=== PATIENT | female | born 1990 | race Caucasian/White ===

== ENCOUNTER 2016-08-18 19:34 | Emergency (ER) | payer OTHER ==
--- NOTE | 2016-08-18 21:36 | ED NURSING NOTES ---
Clinical Report - Nurses [facility] [address] [place] [address] 08/18/2016 19:36 Patient: ANAHY BASURTO TRIAGE Triage time 19:55 Aug 18 2016. Acuity: LEVEL 3. Chief Complaint: FEVER, COUGH and SORE THROAT. Alert. ROMAN COMA SCORE: Roman Coma Scale: 15- eyes open spontaneously (4); best verbal response- oriented x 4 (5); best motor response- obeys commands (6). --20:06 Oumar Mac R.N. 19:56 08/18/16. BP: 109/56. HR: 131 (regular). RR: 16. O2 saturation: 100% on room air. Temp: 103.1 F. Pain level now: 11/29. --20:06 Oumar Mac R.N. Weight: 77.1 kg. Height/Length: 66 inches Per Patient. BMI: 27.4. --20:06 Oumar Mac R.N. Medications Ranitidine HCl Oral 150 mg, daily. --19:59 Oumar Mac R.N. Medication/allergy information source: the patient. --20:06 Oumar Mac R.N. Allergies Iodinated Diagnostic Agents. --20:00 Oumar Mac R.N. History ( Fever associated with cough, congestion, N/V, and new today mid-to-low back pain.). Onset. (5 days ago). She has had chest congestion, chills, fatigue and vomiting. 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 (Theraflu, Nyquil, Mucinex). PAST MEDICAL HX: Negative. SOCIAL HX: Never smoker. No alcohol use or drug use. Recent travel- [place] (about 7 days ago). No infectious disease exposure. ABUSE ASSESSMENT: No report of abuse. FALL RISK ASSESSMENT: Fall risk assessment completed. No fall risk identified. NUTRITIONAL RISK ASSESSMENT: The nutritional risk assessment revealed no deficiencies. FUNCTIONAL ASSESSMENT: Functional assessment: no impairments noted. LEARNING NEEDS ASSESSMENT: The learning needs assessment revealed no barriers. SKIN INTEGRITY ASSESSMENT: Skin integrity risk assessment completed. No skin integrity risk identified. --20:06 Oumar Mac R.N. PROBLEMS: Tuberculosis. --20:02 Oumar Mac R.N. ADDITIONAL SURGERIES: Lap Banding. --20:02 Oumar Mac R.N. Interventions ID and allergy band on patient. To treatment room. --20:06 Oumar Mac R.N. PHYSICAL ASSESSMENT Ambulatory to room. GENERAL / NEURO / PSYCH: Alert. Oriented X 4. HEENT: Mucous membranes are pink. RESPIRATORY: Respirations not labored. CVS: Cardiac rhythm: sinus tachycardia. GI / : Abdomen soft. SKIN: Skin intact. Skin is dry. Hot skin. Normal skin turgor. --20:07 Oumar Mac R.N. NURSING PROGRESS NOTES Pulse oximeter applied. Patient gowned. Reassurance given to the patient. Patient identifiers checked. Call light placed in reach. Side rails up x 1. Bed placed in lowest position. Brakes of bed on. Patient ready for evaluation- ELECTROPLATER notified. --20:07 Oumar Mac R.N. 20:04 08/18/2016 Acetaminophen (APAP) PO Tablets 1000 mg given. Allergies verified and confirmed 5 rights. --20:24 Oumar Mac R.N. 20:25. Patient ID band checked for patient name, birthdate and medical record number: patient confirmed. Instructions provided to collect clean catch urine and patient verbalized understanding. Clean catch urine collected with return of yellow-colored clear urine; odor is normal; sample sent to lab for urinalysis. Specimen labeled in the presence of the patient. --20:47 Oumar Mac R.N. 20:50 08/18/16. BP: 105/65. HR: 121. RR: 16. O2 saturation: 97% on room air. --20:51 Oumar Mac R.N. DISPOSITION / DISCHARGE Departure time: 21:53 Aug 18 2016. Condition at departure: improved. No learning barriers present. Discharge instructions provided and reviewed with the patient. Reviewed warnings. Reviewed medication(s). Treatments reviewed. Reviewed referrals. Patient verbalized understanding. Written instructions provided in Austrian. The patient was discharged home. She left the Emergency Department ambulatory and via private vehicle. Patient driving. --21:53 Kristina Abernathy R.N. 21:52 08/18/16. BP: 94/43. HR: 113. RR: 20. O2 saturation: 98%. Temp: 98.6 F. Pain level now 08/01. --21:53 Kristina Abernathy R.N. Locked/Released at 08/19/2016 8:51 by Aurora Murray R.N.
--- NOTE | 2016-08-18 21:36 | ED NURSING NOTES ---
Clinical Report - Nurses [facility] [address] [place] [address] 08/18/2016 19:36 Patient: ANAHY BASURTO TRIAGE Triage time 19:55 Aug 18 2016. Acuity: LEVEL 3. Chief Complaint: FEVER, COUGH and SORE THROAT. Alert. ROMAN COMA SCORE: Roman Coma Scale: 15- eyes open spontaneously (4); best verbal response- oriented x 4 (5); best motor response- obeys commands (6). --20:06 Oumar Mac R.N. 19:56 08/18/16. BP: 109/56. HR: 131 (regular). RR: 16. O2 saturation: 100% on room air. Temp: 103.1 F. Pain level now: 11/29. --20:06 Oumar Mac R.N. Weight: 77.1 kg. Height/Length: 66 inches Per Patient. BMI: 27.4. --20:06 Oumar Mac R.N. Medications Ranitidine HCl Oral 150 mg, daily. --19:59 Oumar Mac R.N. Medication/allergy information source: the patient. --20:06 Oumar Mac R.N. Allergies Iodinated Diagnostic Agents. --20:00 Oumar Mac R.N. History ( Fever associated with cough, congestion, N/V, and new today mid-to-low back pain.). Onset. (5 days ago). She has had chest congestion, chills, fatigue and vomiting. 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 (Theraflu, Nyquil, Mucinex). PAST MEDICAL HX: Negative. SOCIAL HX: Never smoker. No alcohol use or drug use. Recent travel- [place] (about 7 days ago). No infectious disease exposure. ABUSE ASSESSMENT: No report of abuse. FALL RISK ASSESSMENT: Fall risk assessment completed. No fall risk identified. NUTRITIONAL RISK ASSESSMENT: The nutritional risk assessment revealed no deficiencies. FUNCTIONAL ASSESSMENT: Functional assessment: no impairments noted. LEARNING NEEDS ASSESSMENT: The learning needs assessment revealed no barriers. SKIN INTEGRITY ASSESSMENT: Skin integrity risk assessment completed. No skin integrity risk identified. --20:06 Oumar Mac R.N. PROBLEMS: Tuberculosis. --20:02 Oumar Mac R.N. ADDITIONAL SURGERIES: Lap Banding. --20:02 Oumar Mac R.N. Interventions ID and allergy band on patient. To treatment room. --20:06 Oumar Mac R.N. PHYSICAL ASSESSMENT Ambulatory to room. GENERAL / NEURO / PSYCH: Alert. Oriented X 4. HEENT: Mucous membranes are pink. RESPIRATORY: Respirations not labored. CVS: Cardiac rhythm: sinus tachycardia. GI / : Abdomen soft. SKIN: Skin intact. Skin is dry. Hot skin. Normal skin turgor. --20:07 Oumar Mac R.N. NURSING PROGRESS NOTES Pulse oximeter applied. Patient gowned. Reassurance given to the patient. Patient identifiers checked. Call light placed in reach. Side rails up x 1. Bed placed in lowest position. Brakes of bed on. Patient ready for evaluation- DIALYSIS NURSE notified. --20:07 Oumar Mac R.N. 20:04 08/18/2016 Acetaminophen (APAP) PO Tablets 1000 mg given. Allergies verified and confirmed 5 rights. --20:24 Oumar Mac R.N. 20:25. Patient ID band checked for patient name, birthdate and medical record number: patient confirmed. Instructions provided to collect clean catch urine and patient verbalized understanding. Clean catch urine collected with return of yellow-colored clear urine; odor is normal; sample sent to lab for urinalysis. Specimen labeled in the presence of the patient. --20:47 Oumar Mac R.N. 20:50 08/18/16. BP: 105/65. HR: 121. RR: 16. O2 saturation: 97% on room air. --20:51 Oumar Mac R.N. DISPOSITION / DISCHARGE Departure time: 21:53 Aug 18 2016. Condition at departure: improved. No learning barriers present. Discharge instructions provided and reviewed with the patient. Reviewed warnings. Reviewed medication(s). Treatments reviewed. Reviewed referrals. Patient verbalized understanding. Written instructions provided in Ecuadorean. The patient was discharged home. She left the Emergency Department ambulatory and via private vehicle. Patient driving. --21:53 Kristina Abernathy R.N. 21:52 08/18/16. BP: 94/43. HR: 113. RR: 20. O2 saturation: 98%. Temp: 98.6 F. Pain level now 08/01. --21:53 Kristina Abernathy R.N. Locked/Released at 08/19/2016 8:51 by Aurora Murray R.N.
--- NOTE | 2016-08-18 21:36 | ED ORDER SUMMARY ---
..... Patient: ANAHY BASURTO OrderSheet [facility] VisitID: [id number] [address] [place] [address] 26y, F Registration Date/Time: 08/18/2016 ORDER SHEET Weight: 77.1 kg Allergies: Iodinated Diagnostic Agents GENERAL ORDERS: Chest 2V Urgent (20:05 08/18/2016 HBivens A.R.N.P.) (Ack 20:10 LMuller) (20:42 JRomanelli R.N.) UA-Culture if indicated Urgent (20:18 08/18/2016 JRomanelli R.N. verbal order read back to HBivens A.R.N.P.) (Ack 20:19 LMuller) (20:22 JRomanelli R.N.) Urine Urgent (20:19 08/18/2016 JRomanelli R.N. verbal order read back to HBivens A.R.N.P.) (Ack 20:20 LMuller) (20:22 JRomanelli R.N.) MEDICATION ORDERS: Acetaminophen PO 1,000 mg (NOW) (20:23 08/18/2016 JRomanelli R.N. verbal order read back to HBivens A.R.N.P.) (20:24 JRomanelli R.N.) IV FLUIDS: ORDER SHEET NOTES: [Electronically signed by Desiree RahmanRKristieNKristiePKristie (22:13 08/18/2016)] [Electronically signed by Aurora Murray R.N. (08:51 08/19/2016)] [Electronically locked/signed by Aurora Murray R.N. (08:51 08/19/2016)]
--- NOTE | 2016-08-18 21:36 | ED CLINICAL REPORT ---
Clinical Report - Physicians/Mid Levels [facility] [address] [place] [address] 08/18/2016 19:36 Patient: ANAHY BASURTO Time Seen: 19:59; initial patient contact, initial documentation, patient care assumed. Arrived- By private vehicle. Historian- patient. HISTORY OF PRESENT ILLNESS Chief Complaint: COUGH, SORE THROAT, FEVER, CHILLS and MUSCLE ACHES. This started about 5 days ago and is still present. The illness is described as moderate. The patient has had a cough, a sore throat, nasal congestion, fever of 102 F and chills. She has had muscle aches. She has had sputum production (doesn't know color, can't get it up and it chokes her). No nasal discharge, sinus pressure, sinus drainage or ear pain. Additional history - The patient has had contact with a sick family member. They have had similar symptoms. Similar symptoms previously: None. Recent medical care: Not recently seen/assessed. REVIEW OF SYSTEMS The patient has had vomiting (about x5 episodes total mainly from the sputum gagging her). Denies current . All systems otherwise negative, except as recorded above. PAST HISTORY See nurses notes. PROBLEMS: Tuberculosis. --20:02 Oumar Mac RKristieN. ADDITIONAL SURGERIES: Lap Banding. --20:02 Oumar Mac RVasyl. SOCIAL HISTORY Never smoker. Not exposed to second-hand smoke at home. No alcohol use or drug use. Recent travel by airplane and ship- [place]. Participated in outdoor activities. No recent travel in endemic area. Is a local resident. FAMILY HISTORY Negative. ADDITIONAL NOTES The nursing notes have been reviewed with agreement regarding the chief complaint, HPI, ROS, PMH and patient medications and allergies. PHYSICAL EXAM Vital Signs: 08/18/2016 19:56 BP: 109/56. HR: 131. RR: 16. O2 saturation: 100%. Temp: 103.1 F. Pain level now: 6/10. Have been reviewed as abnormal and appear to be correct. Blood pressure normal. Tachycardic. Respiratory rate normal. Febrile. Oxygen saturation normal. Appearance: Alert. No acute distress. Eyes: Pupils equal, round and reactive to light. Eyes normal inspection. ENT: Ears normal. Nose normal. Pharynx normal. Uvula midline. Neck: Normal inspection. Neck supple. CVS: Heart rate / rhythm abnormal. Tachycardia (ventricular rate = 120). Heart sounds normal. Pulses normal. Respiratory: No respiratory distress. Breath sounds normal. Back: Normal inspection. Skin: Skin warm and dry. Normal skin color. No rash. Normal skin turgor. Extremities: Extremities exhibit normal ROM. No lower extremity edema. Neuro: Oriented X 3. No motor deficit. No sensory deficit. LABS, X-RAYS, AND EKG Chest X-ray: Normal Chest X-Ray. Note - Tests: (xray reviewed by me and dr mccoy). PROGRESS AND PROCEDURES Patient counseled in person regarding the patient's stable condition, test results and diagnosis. 21:35. Differential Diagnosis: Other possible considerations: flu, uri, viral illness, pneumonia, bronchitis. Above considerations are based on history, physical exam and X-Ray data. Differential diagnosis was discussed with patient. Disposition: Discharged home in good and improved condition (21:35). Condition: good and stable. CLINICAL IMPRESSION Acute viral rhinitis. No airway obstruction. Acute fever INSTRUCTIONS Alternate Tylenol (Acetaminophen) and Motrin (Ibuprofen) for fever, temperature greater than 101 degrees orally. Take according to label instructions. Drink plenty of fluids. Warnings: GENERAL WARNINGS: Return or contact your physician immediately if your condition worsens or changes unexpectedly, if not improving as expected, or if other problems arise. Specifically return if problem worsens. Prescription Medications: Motrin 600 mg tablets: take 1 tablet orally every 6 hours as needed for pain. Dispense twenty (20). No refill. OTC Medications: Mucinex DM: (available over the counter) take 1 tablet orally every 12 hours as needed for cough. Dispense twenty (20). No refill. Follow-up: Follow up with your doctor in about three days even if well. Call for an appointment. Summary of care provided to patient. Understanding of the discharge instructions verbalized by patient. (Electronically signed by Desiree Rahman A.R.N.P. 08/18/2016 22:13)
--- NOTE | 2016-08-18 21:36 | ED ORDER SUMMARY ---
..... Patient: ANAHY BASURTO OrderSheet [facility] VisitID: [id number] [address] [place] [address] 26y, F Registration Date/Time: 08/18/2016 ORDER SHEET Weight: 77.1 kg Allergies: Iodinated Diagnostic Agents GENERAL ORDERS: Chest 2V Urgent (20:05 08/18/2016 HBivens A.R.N.P.) (Ack 20:10 LMuller) (20:42 JRomanelli R.N.) UA-Culture if indicated Urgent (20:18 08/18/2016 JRomanelli R.N. verbal order read back to HBivens A.R.N.P.) (Ack 20:19 LMuller) (20:22 JRomanelli R.N.) Urine Urgent (20:19 08/18/2016 JRomanelli R.N. verbal order read back to HBivens A.R.N.P.) (Ack 20:20 LMuller) (20:22 JRomanelli R.N.) MEDICATION ORDERS: Acetaminophen PO 1,000 mg (NOW) (20:23 08/18/2016 JRomanelli R.N. verbal order read back to HBivens A.R.N.P.) (20:24 JRomanelli R.N.) IV FLUIDS: ORDER SHEET NOTES: [Electronically signed by Desiree RahmanRKristieNKristiePKristie (22:13 08/18/2016)] [Electronically signed by Aurora Murray R.N. (08:51 08/19/2016)] [Electronically locked/signed by Aurora Murray R.N. (08:51 08/19/2016)]
--- NOTE | 2016-08-18 22:49 | DIAGNOSTIC IMAGING REPORT ---
PROCEDURE: XR CHEST 2 VIEW INDICATION: FEVER TECHNIQUE: Two views. COMPARISON: None. FINDINGS: The cardiomediastinal contour and central vasculature are within normal limits. The lungs are clear without focal consolidation, pleural effusion, or pneumothorax. The visualized osseous structures are intact. Abnormally large angle of the proximal gastric band. IMPRESSION: 1. No acute cardiopulmonary disease. 2. Abnormal angle of gastric band.
--- NOTE | 2016-08-19 08:51 | ED MAR SUMMARY ---
..... Medication Administration Record [facility] [address] [place] [address] Patient: ANAHY BASURTO Visit ID: [id number] 26y, F Weight: 77.1 kg Height/Length: 66 in BMI: 27.4 ALLERGIES: Iodinated Diagnostic Agents Given 20:04 08/18/2016 Oumar Mac R.N. Medication Administered: ACETAMINOPHEN [PO] (APAP), Dose: 1000 mg Tablets PO. Medication Ordered: Acetaminophen PO 1,000 mg (NOW).
--- NOTE | 2016-08-19 08:51 | ED MED RECONCILIATION SUMMARY ---
Patient: ANAHY BASURTO Medication Reconciliation Report [facility] VisitID: [id number] [address] [place] [address] 26y, F Registration Date/Time: 08/18/2016 Weight: 77.1 kg Height/Length: 66 in. BMI: 27.4 ALLERGIES: Iodinated Diagnostic Agents The patient's Home Medications are listed below: THE FOLLOWING MEDICATIONS NEED TO BE RECONCILED: Ranitidine HCl Oral 150 mg, daily The source(s) of the original Home Medication information: patient The following Medications were given to the patient in the Emergency Department: Acetaminophen [PO] PO 1000 mg, administered: 08/18/2016 8:04:00 PM The following Medications were prescribed to the patient: Motrin 600 mg tablets: take 1 tablet orally every 6 hours as needed for pain. Dispense twenty (20). No refill. -- Desiree Rahman, Tasha.R.N.P. Mucinex DM: (available over the counter) take 1 tablet orally every 12 hours as needed for cough. Dispense twenty (20). No refill. -- Desiree Rahman, A.R.N.P.
--- NOTE | 2016-08-19 08:51 | ED MAR SUMMARY ---
..... Medication Administration Record [facility] [address] [place] [address] Patient: ANAHY BASURTO Visit ID: [id number] 26y, F Weight: 77.1 kg Height/Length: 66 in BMI: 27.4 ALLERGIES: Iodinated Diagnostic Agents Given 20:04 08/18/2016 Oumar Mac R.N. Medication Administered: ACETAMINOPHEN [PO] (APAP), Dose: 1000 mg Tablets PO. Medication Ordered: Acetaminophen PO 1,000 mg (NOW).
--- NOTE | 2016-08-19 08:51 | ED MED RECONCILIATION SUMMARY ---
Patient: ANAHY BASURTO Medication Reconciliation Report [facility] VisitID: [id number] [address] [place] [address] 26y, F Registration Date/Time: 08/18/2016 Weight: 77.1 kg Height/Length: 66 in. BMI: 27.4 ALLERGIES: Iodinated Diagnostic Agents The patient's Home Medications are listed below: THE FOLLOWING MEDICATIONS NEED TO BE RECONCILED: Ranitidine HCl Oral 150 mg, daily The source(s) of the original Home Medication information: patient The following Medications were given to the patient in the Emergency Department: Acetaminophen [PO] PO 1000 mg, administered: 08/18/2016 8:04:00 PM The following Medications were prescribed to the patient: Motrin 600 mg tablets: take 1 tablet orally every 6 hours as needed for pain. Dispense twenty (20). No refill. -- Desiree Rahman, Tasha.R.N.P. Mucinex DM: (available over the counter) take 1 tablet orally every 12 hours as needed for cough. Dispense twenty (20). No refill. -- Desiree Rahman, A.R.N.P.
--- NOTE | 2016-08-19 08:51 | ED DISCHARGE INSTRUCTIONS ---
Patient: ANAHY BASURTO General Instructions [facility] VisitID: [id number] [place] [address] 26y, F Registration Date/Time: 08/18/2016 Acute viral rhinitis. No airway obstruction. Acute fever INSTRUCTIONS Alternate Tylenol (Acetaminophen) and Motrin (Ibuprofen) for fever, temperature greater than 101 degrees orally. Take according to label instructions. Drink plenty of fluids. Warnings: GENERAL WARNINGS: Return or contact your physician immediately if your condition worsens or changes unexpectedly, if not improving as expected, or if other problems arise. Specifically return if problem worsens. Prescription Medications: Motrin 600 mg tablets: take 1 tablet orally every 6 hours as needed for pain. Dispense twenty (20). No refill. OTC Medications: Mucinex DM: (available over the counter) take 1 tablet orally every 12 hours as needed for cough. Dispense twenty (20). No refill. Follow-up: Follow up with your doctor in about three days even if well. Call for an appointment. Summary of care provided to patient. Understanding of the discharge instructions verbalized by patient. ADDITIONAL INFORMATION Febrile Illness, Uncertain Cause (Adult) You have a fever, but the cause is not certain. A fever is a natural reaction of the body to an illness such as infections due to a virus or bacteria. In most cases, the temperature itself is not harmful. It actually helps the body fight infections. A fever does not need to be treated unless you feel very uncomfortable. Sometimes a fever can be an early sign of a more serious infection. Therefore, you should watch for the signs listed below. Home Care: If signs and symptoms are severe, rest at home for the first 2-3 days. When you resume activity, don't let yourself get too tired. Stay away from cigarette smoke (yours and other peoples). You may use acetaminophen (Tylenol) or ibuprofen (Motrin, Advil) to control fever or pain, unless another medicine was prescribed. NOTE: If you have chronic liver or kidney disease or ever had a stomach ulcer or GI bleeding, talk with your doctor before using these medicines. (Aspirin should never be used in anyone under 18 years of age who is ill with a fever. It may cause severe liver damage.) Your appetite may be poor, so a light diet is fine. Avoid dehydration by drinking 6-8 glasses of fluid per day (water, sport drinks such as Gatorade, sodas without caffeine, juices, tea, soup). Extra fluid will help loosen secretions in the nose and lungs. [id number] products will not shorten the duration of the illness but may be helpful for the following symptoms: cough (Robitussin DM); sore throat (Chloraseptic lozenges or spray); nasal and sinus congestion (Actifed or Sudafed). NOTE: Do not use decongestants if you have high blood pressure. Follow Up with your doctor or as advised if you do not start to improve over the next week. Get Prompt Medical Attention if any of the following occur: Cough with lots of colored sputum (mucus) or blood in your sputum Chest pain, shortness of breath, wheezing or difficulty breathing Severe headache, face, neck, throat or ear pain Feeling drowsy or confused Abdominal pain, repeated vomiting or diarrhea Joint pain or a new rash Burning when urinating Fever of 100.4F (38C) oral or higher, not better with fever medication Feeling weak or dizzy Convulsion Taking Your Child's Temperature If your child feels hot, then check the temperature. Under 3 months : Start with a AXILLARY temperature. If it is above 99.0 F (37.2 C), take a RECTAL temperature. 3 months to 4 years : Measure a RECTAL temperature, or an EAR temperature. Over 4 years : Measure an ORAL temperature. Rectal Temperature is the most accurate. Ear temperature is not as accurate as a rectal or oral temperature, but is more convenient and can be used in the 3 month to 4 year old. Other methods such as plastic strips , forehead devices , and pacifier thermometers are even less accurate and they are not recommended. If you do not know how to use a thermometer, ask your nurse or pharmacist. Oral Method: Normal: 98.6 F (37.0 C). Range of normal: Up to 99.0 F (37.2 C). Recommended Age: Use this method for children older than 4 or 5 years of age, only if cooperative. 1) Wait at least 20 minutes after drinking or eating before taking an oral temperature. 2) Place the tip of a the thermometer under the child's tongue. 3) Have child close lips gently, without biting on the thermometer. 4) Keep under the tongue until the thermometer beeps. 5) Remove thermometer and read the temperature in the display. 6) Clean the thermometer with alcohol, or soap and water after each use. Axillary Method (UNDER THE ARM): Normal: 97.6 F (36.6 C) Range of Normal: Up to 98.6 F (37.0 C) Recommended Age: Use this method for children under 4 years of age or any uncooperative child. 1) Make sure armpit is dry and the child does not have clothing between arm and chest. 2) Place the tip of the thermometer high up in the armpit. 4) Hold the child's arm snug against their body with the thermometer in place until it beeps. 5) Remove thermometer and read the temperature in the display. 6) Clean the thermometer with alcohol, or soap and water after each use. Rectal Method: Normal: 99.6 F (37.6 C). Range of Normal: Up to 100.4 F (38.0 C). Recommended age: Use this method for children under 4 years of age or any uncooperative child. 1) Lubricate the tip of a rectal thermometer with a lubricant such as Vaseline jelly or K-Y jelly. 2) Lay your child face down across your lap, or on his/her side with knees bent toward the chest. Spread buttocks so that the anus can be easily seen. 3) Hold the thermometer between your thumb and index finger with the edge of your hand resting on the buttocks. Slowly and gently insert thermometer into the anus about one inch. The tip should slide in easily. Do not force it since they may cause injury. 4) Do not let go of the thermometer! Hold it carefully in place until it beeps. 5) Remove thermometer and read the temperature in the display. 6) Clean the thermometer with alcohol, or soap and water after each use. When To Seek Help Call your doctor or return here if you have an infant younger than 3 months with a temperature of 100.4 F (38.0 C) or an older child with a fever higher than 104.0 F (40.0 C). Viral Respiratory Illness [Adult] You have an Upper Respiratory Illness (URI) caused by a virus. This illness is contagious during the first few days. It is spread through the air by coughing and sneezing or by direct contact (touching the sick person and then touching your own eyes, nose or mouth). Most viral illnesses go away within 7-10 days with rest and simple home remedies. Sometimes, the illness may last for several weeks. Antibiotics will not kill a virus and are generally not prescribed for this condition. Home Care: 1) If symptoms are severe, rest at home for the first 2-3 days. When you resume activity, don't let yourself get too tired. 2) Avoid being exposed to cigarette smoke (yours or others). 3) Tylenol (acetaminophen) or ibuprofen (Advil, Motrin) will help fever, muscle aching and headache. (Persons under 18 with fever should not take aspirin since this may cause liver damage.) 4) Your appetite may be poor, so a light diet is fine. Avoid dehydration by drinking 6-8 glasses of fluids per day (water, soft drinks, juices, tea, soup). Extra fluids will help loosen secretions in the nose and lungs. 5) Ulyp-sak-lstgzis cold medicines will not shorten the length of time youre sick, but they may be helpful for the following symptoms: cough (Robitussin DM); sore throat (Chloraseptic lozenges or spray); nasal and sinus congestion (Actifed, Sudafed, Chlortrimeton). Follow Up with your doctor or as advised if you dont improve over the next week. Get Prompt Medical Attention if any of the following occur: -- Cough with lots of colored sputum (mucus) or blood in your sputum -- Chest pain, shortness of breath, wheezing or have trouble breathing -- Severe headache; face, neck or ear pain -- Fever over 100.4 F (38.0 C) for more than three days -- You cant swallow due to throat pain Fever Control (Adult) A fever is a natural reaction of the body to an illness. In most cases, the temperature itself is not harmful. It actually helps the body fight infections. A fever does not need to be treated unless you feel very uncomfortable. Home Care If you feel warm, check your temperature. If you feel very uncomfortable and your temperature is at or higher than 100.4F (38C) oral, you may take acetaminophen (Tylenol) every 4 to 6 hours. If you cant take or keep down oral medicine, ask your pharmacist for Tylenol suppositories, which you can get without a prescription. If the fever does not respond to acetaminophen within 1 hour, take ibuprofen (Advil or Motrin). If this works, keep taking the ibuprofen every 6 to 8 hours. Note: If you have chronic liver or kidney disease or ever had a stomach ulcer or GI bleeding, talk with your doctor before using these medications. If either medication alone does not keep the fever down, you may alternate the two medicines every 3 to 4 hours, only if your healthcare provider has instructed you to do so. For example, take Motrin then wait 3 hours, take Tylenol then wait 3 hours, take Motrin, and so on. Follow your healthcare providers instructions exactly. Clothing: Keep clothing light because excess body heat is lost through the skin. The fever will go up if you wear extra layers or wrap in blankets. Fluids: Fever causes the body to lose water through evaporation. Drink plenty of fluids such as water, juice, clear sodas, may shama, or lemonade. Do not use aspirin in anyone under 18 years of age who is ill with a fever. It can cause severe liver damage. Follow Up with your doctor or as advised by our staff if you do not get better after 48 hours. Get Prompt Medical Attention if any of the following occur: Fever does not get better after taking fever medication Fast or difficult breathing Earache, sinus pain, stiff or painful neck, headache, repeated diarrhea or vomiting You feel unusually irritable, drowsy, or confused A rash appears You feel weak or dizzy, or that you might faint Ibuprofen Oral tablet What is this medicine? IBUPROFEN (eye BYOO proe fen) is a non-steroidal anti-inflammatory drug (NSAID). It is used for dental pain, fever, headaches or migraines, osteoarthritis, rheumatoid arthritis, or painful monthly periods. It can also relieve minor aches and pains caused by a cold, flu, or sore throat. How should I use this medicine? Take this medicine by mouth with a glass of water. Follow the directions on the prescription label. Take this medicine with food if your stomach gets upset. Try to not lie down for at least 10 minutes after you take the medicine. Take your medicine at regular intervals. Do not take your medicine more often than directed. A special MedGuide will be given to you by the pharmacist with each prescription and refill. Be sure to read this information carefully each time. Talk to your vice president fixed income regarding the use of this medicine in children. Special care may be needed. What side effects may I notice from receiving this medicine? Side effects that you should report to your doctor or health weekend caregiver as soon as possible: allergic reactions like skin rash, itching or hives, swelling of the face, lips, or tongue black or bloody stools, blood in the urine or in vomit breathing problems changes in vision chest pain general ill feeling or flu-like symptoms nausea or vomiting redness, blistering, peeling or loosening of the skin, including inside the mouth slurred speech or weakness on one side of the body stomach pain unexplained weight gain or swelling unusually weak or tired yellowing of eyes or skin Side effects that usually do not require medical attention (report to your doctor or health weekend caregiver if they continue or are bothersome): constipation or diarrhea dizziness gas or heartburn stomach upset What may interact with this medicine? Do not take this medicine with any of the following medications: cidofovir ketorolac methotrexate pemetrexed This medicine may also interact with the following medications: alcohol aspirin diuretics lithium other drugs for inflammation like prednisone warfarin What if I miss a dose? If you miss a dose, take it as soon as you can. If it is almost time for your next dose, take only that dose. Do not take double or extra doses. Where should I keep my medicine? Keep out of the reach of children. Store at room temperature between 15 and 30 degrees C (59 and 86 degrees F). Keep container tightly closed. Throw away any unused medicine after the expiration date. What should I tell my health care provider before I take this medicine? They need to know if you have any of these conditions: asthma cigarette smoker drink more than 3 alcohol containing drinks a day heart disease or circulation problems such as heart failure or leg edema (fluid retention) high blood pressure kidney disease liver disease stomach bleeding or ulcers an unusual or allergic reaction to ibuprofen, aspirin, other NSAIDS, other medicines, foods, dyes, or preservatives or trying to get breast-feeding What should I watch for while using this medicine? Tell your doctor or healthcare professional if your symptoms do not start to get better or if they get worse. This medicine does not prevent heart attack or stroke. In fact, this medicine may increase the chance of a heart attack or stroke. The chance may increase with longer use of this medicine and in people who have heart disease. If you take aspirin to prevent heart attack or stroke, talk with your doctor or health weekend caregiver. Do not take other medicines that contain aspirin, ibuprofen, or naproxen with this medicine. Side effects such as stomach upset, nausea, or ulcers may be more likely to occur. Many medicines available without a prescription should not be taken with this medicine. This medicine can cause ulcers and bleeding in the stomach and intestines at any time during treatment. Ulcers and bleeding can happen without warning symptoms and can cause . To reduce your risk, do not smoke cigarettes or drink alcohol while you are taking this medicine. You may get drowsy or dizzy. Do not drive, use machinery, or do anything that needs mental alertness until you know how this medicine affects you. Do not stand or sit up quickly, especially if you are an older patient. This reduces the risk of dizzy or fainting spells. This medicine can cause you to bleed more easily. Try to avoid damage to your teeth and gums when you brush or floss your teeth. Guaifenesin Oral syrup What is this medicine? GUAIFENESIN (gwye FEN e sin) is an expectorant. It helps to thin mucous and make coughs more productive. This medicine is used to treat coughs caused by colds or the flu. It is not intended to treat chronic cough caused by smoking, asthma, emphysema, or heart failure. How should I use this medicine? Take this medicine by mouth. Follow the directions on the prescription label. Use a specially marked spoon or container to measure your dose. Household spoons are not accurate. Take your medicine at regular intervals. Do not take it more often than directed. Talk to your vice president fixed income regarding the use of this medicine in children. Special care may be needed. What side effects may I notice from receiving this medicine? Side effects that you should report to your doctor or health weekend caregiver as soon as possible: allergic reactions like skin rash, itching or hives, swelling of the face, lips, or tongue Side effects that usually do not require medical attention (report to your doctor or health weekend caregiver if they continue or are bothersome): dizziness headache stomach upset What may interact with this medicine? Interactions are not expected. What if I miss a dose? If you miss a dose, take it as soon as you can. If it is almost time for your next dose, take only that dose. Do not take double or extra doses. Where should I keep my medicine? Keep out of the reach of children. Store at room temperature between 20 and 25 degrees C (68 and 77 degrees F). Do not freeze. Keep container tightly closed. Throw away any unused medicine after the expiration date. What should I tell my health care provider before I take this medicine? They need to know if you have any of these conditions: diabetes fever kidney disease an unusual or allergic reaction to guaifenesin, other medicines, foods, dyes, or preservatives or trying to get breast-feeding What should I watch for while using this medicine? Do not treat a cough for more than 1 week without consulting your doctor or health weekend caregiver. If you also have a high fever, skin rash, continuing headache, or sore throat, see your doctor. For best results, drink 6 to 8 glasses water daily while you are taking this medicine. You have been given the following additional information: Febrile Illness, Uncertain Cause (Adult) Thermometer Use Uri, Viral, No Abx (Adult) Fever Control (Adult) Ibuprofen Oral tablet Guaifenesin Oral syrup (Electronically signed by Desiree Rahman A.R.N.P. 08/18/2016 22:13)
== END 2016-08-18 21:55 | disposition home or self-care (01) ==
LOC: ED SRH 19:34
DX: J00 Acute nasopharyngitis [common cold] (principal); B97.89 Other viral agents as the cause of diseases classified elsewhere
CPT/HCPCS: 90004; 93070